=== PATIENT | female | born 1990 | race American Indian/Alaskan Native ===

== ENCOUNTER 2017-04-05 09:40 | Emergency (ER) | payer SELFPAY ==
[2017-04-05 12:02] LABS: Hematocrit 21.8 % (30.3-42.9); Hemoglobin 6.9 gm/dl (10.1-14.3); Mean Corpuscular HGB Conc 31 % (30-34); Mean Corpuscular Volume 73 fl (79-97); Platelet Count 287 K/mm3 (140-440); Red Blood Count 2.98 M/mm3 (3.65-5.03); Red Cell Distribution Width 17.3 % (13.2-15.2); White Blood Count 5.6 K/mm3 (4.5-11.0)
[2017-04-05 12:19] LABS: Mean Corpuscular Hemoglobin 23 pg (28-32)
[2017-04-05] MEDS ORDERED: NACL 0.9% 1000 ML 1,000 ML IV ONE (17:05)
[2017-04-05] MEDS ORDERED: TORADOL IV ONE (17:05)
--- NOTE | 2017-04-05 17:07 | Emergency Department Report ---
ED Female HPI - General Chief complaint: Weakness Stated complaint: SEVERE MIGRAINE Time Seen by Provider: 04/05/17 16:46 Source: patient Mode of arrival: Ambulatory Limitations: No Limitations - History of Present Illness MD Complaint: vaginal bleeding -: Gradual, month(s) (3) Radiation: non-radiating Severity: moderate Severity scale (0 -10): 4 Quality: cramping, sharp, dull Consistency: constant Improves with: none Worsens with: none Are you Now?: No Associated Symptoms: vaginal bleeding, weakness. denies: vaginal discharge, abdominal pain, nausea/vomiting, fever/chills, headaches, loss of appetite, dysuria, hematuria, rash, seizure, shortness of breath, syncope - Related Data Previous Rx's Medication Instructions Recorded Last Taken Type Ibuprofen [Motrin] 800 mg PO TID PRN #15 tablet 08/03/13 Unknown Rx metroNIDAZOLE [Flagyl] 500 mg PO BID #14 tablet 08/03/13 Unknown Rx medroxyPROGESTERone ACETATE 10 mg PO QDAY #10 tablet 04/05/17 Unknown Rx [Provera] Allergies Allergy/AdvReac Type Severity Reaction Status Date / Time No Known Allergies Allergy Unverified 08/03/13 02:23 ED Review of Systems ROS: Stated complaint: SEVERE MIGRAINE Other details as noted in HPI Comment: All other systems reviewed and negative ED Past Medical Hx - Past Medical History Previous Medical History?: Yes Hx Headaches / Migraines: Yes Additional medical history: ANEMIA, IRREG. MENSTRUAL CYCLES. - Surgical History Past Surgical History?: Yes Additional Surgical History: , hernia surgery - Social History Smoking Status: Never Smoker Substance Use Type: None - Medications Home Medications: Home Medications Medication Instructions Recorded Confirmed Last Taken Type Ibuprofen [Motrin] 800 mg PO TID PRN #15 tablet 08/03/13 Unknown Rx metroNIDAZOLE [Flagyl] 500 mg PO BID #14 tablet 08/03/13 Unknown Rx medroxyPROGESTERone ACETATE 10 mg PO QDAY #10 tablet 04/05/17 Unknown Rx [Provera] ED Physical Exam - General Limitations: No Limitations General appearance: alert, in no apparent distress - Head Head exam: Present: atraumatic, normocephalic - Eye Eye exam: Present: normal appearance, PERRL, EOMI - ENT ENT exam: Present: mucous membranes moist - Neck Neck exam: Present: normal inspection - Respiratory Respiratory exam: Present: normal lung sounds bilaterally. Absent: respiratory distress - Cardiovascular Cardiovascular Exam: Present: regular rate, normal rhythm. Absent: systolic murmur, diastolic murmur, rubs, gallop - GI/Abdominal GI/Abdominal exam: Present: soft, normal bowel sounds. Absent: distended, tenderness, guarding, rebound - Extremities Exam Extremities exam: Present: normal inspection - Back Exam Back exam: Present: normal inspection - Neurological Exam Neurological exam: Present: alert, oriented X3 - Psychiatric Psychiatric exam: Present: normal affect, normal mood - Skin Skin exam: Present: warm, dry, intact, normal color. Absent: rash ED Course Vital Signs 04/05/17 04/05/17 04/05/17 11:17 14:40 15:01 Temperature 97.2 F L Pulse Rate 102 H Respiratory 16 Rate Blood Pressure 145/83 Blood Pressure [Right] O2 Sat by Pulse 100 100 96 Oximetry 04/05/17 04/05/17 04/05/17 15:50 16:01 17:00 Temperature 98.5 F Pulse Rate 96 H Respiratory 18 Rate Blood Pressure 106/40 102/53 Blood Pressure 120/56 [Right] O2 Sat by Pulse 99 99 97 Oximetry 04/05/17 04/05/17 18:00 19:00 Temperature Pulse Rate Respiratory Rate Blood Pressure 108/53 109/49 Blood Pressure [Right] O2 Sat by Pulse 99 99 Oximetry ED Medical Decision Making - Lab Data Result diagrams: 04/05/17 11:30 Critical care attestation.: If time is entered above; I have spent that time in minutes in the direct care of this critically ill patient, excluding procedure time. ED Disposition Clinical Impression: Vaginal bleeding Disposition: DC-01 TO HOME OR SELFCARE Is pt being admited?: No Does the pt Need Aspirin: No Condition: Good Instructions: Menstruation (ED) Prescriptions: medroxyPROGESTERone ACETATE [Provera] 10 mg PO QDAY #10 tablet Referrals: PRIMARY CARE, [Primary Care Provider] - 3-5 Days Forms: Accompanied Note, Work/School Release Form(ED) Time of Disposition: 19:26
[2017-04-05 19:21] VITALS: BP 109/49
== END 2017-04-05 19:46 | disposition home or self-care (01) ==
LOC: ED 09:40
DX: N93.9 Abnormal uterine and vaginal bleeding, unspecified (principal); G43.909 Migraine, unspecified, not intractable, without status migrainosus
CPT/HCPCS: 36415; 84702; 85027; 96361; 96374; 99283; J1885; J7030

== ENCOUNTER 2018-12-24 20:34 | Emergency (ER) | payer OTHER ==
--- NOTE | 2018-12-24 21:22 | Emergency Department Report ---
Blank Doc - Documentation Documentation: This is a 28-year-old female that presents with lower back pain. Denies any u rinary symptoms. Worsened with movement. This initial assessment/diagnostic orders/clinical plan/treatment(s) is/are subject to change based on patient's health status, clinical progression and re- assessment by fellow clinical providers in the ED. Further treatment and workup at subsequent clinical providers discretion. Patient/guardians urged not to elope from the ED as their condition may be serious if not clinically assessed and managed. Initial orders include: 1- Patient sent to [facility] for further evaluation and treatment 2- UA
[2018-12-24 21:23] VITALS: BP 132/86
[2018-12-24 22:18] LABS: Bilirubin,Urine NEG (Negative); Blood,Urine MOD (Negative); Color,Urine Yellow (Yellow); Mucus,Urine FEW /HPF; Protein,Urine <15 mg/dL mg/dL (Negative); Urobilinogen,Urine < 2.0 mg/dL (<2.0)
[2018-12-24 22:23] LABS: HCG Qualitative,Urine Negative (Negative)
[2018-12-25] MEDS ORDERED: PERCOCET 5/325 PO ONE (00:15)
[2018-12-25] MEDS ORDERED: ZOFRAN ODT PO ONE (00:15)
[2018-12-25] MEDS ORDERED: TORADOL IM ONE (00:15)
[2018-12-25] MEDS ORDERED: DELTASONE PO ONE (00:16)
--- NOTE | 2018-12-25 01:28 | Cat Scan Report ---
PROCEDURE: CT LUMBAR SPINE WO CON TECHNIQUE: Computerized axial tomography of the lumbar spine was performed from T12 to the sacrum wi thout contrast material. CT DOSE LENGTH PRODUCT: mGycm HISTORY: FALL / PAIN COMPARISONS: None . FINDINGS: There are no fractures L1-2: No significant abnormality . L2-3: No significant abnormality . L3-4: No significant abnormality . L4-5: No significant abnormality . L5-S1: No significant abnormality . Other: Bony pelvis is intact. Soft tissues are unremarkable. . IMPRESSION: No significant abnormality . This document is electronically signed by Jet Paz MD., Dec 25 2018 01:26:26 AM ET
--- NOTE | 2018-12-25 02:51 | Emergency Department Report ---
ED Back Pain/Injury HPI - General Chief Complaint: Back Pain/Injury Stated Complaint: BACK PAIN Time Seen by Provider: 12/24/18 21:21 Source: patient Limitations: No Limitations - History of Present Illness Initial Comments: Patient is a 28-year-old [place] female with no past medical history presents today due to complaint of acute onset persistent severe low back pain after heavy lifting over 10 days ago. Patient states that she has been taking [id number] medications without relief. Patient states that the last 2 days the pain is worse with any activity, lifting or ambulation. Patient states that the pain is better at rest. Patient denies hematuria, fall, traumatic injury, numbness and tingling of lower extremities bilaterally, saddle paresthesia, fever, chills, dysuria, urinary frequency and urgency, vaginal bleeding or abdominal pain and neck pain. MD Complaint: back pain, other (Heavy lifting) -: Sudden, days(s) (10) Similar Symptoms Previously: No Place: work Radiation: none Severity scale (0 -10): 8 Quality: burning, sharp, aching Consistency: constant Improves With: other (sleeping and laying down) Worsens With: movement, walking Context: while lifting, turning/twisting, bending Associated Symptoms: difficulty walking. denies: confusion, weakness, chest pain, numbness, cough, difficulty urinating, diaphoresis, incontinence, fever/chills, constipation, headaches, abdominal pain, loss of appetite, malaise, nausea/vomiting, rash, seizure, shortness of breath, syncope Treatments Prior to Arrival: NSAIDS - Related Data Previous Rx's Medication Instructions Recorded Last Taken Type Ibuprofen [Motrin] 800 mg PO TID PRN #15 tablet 08/03/13 Unknown Rx metroNIDAZOLE [Flagyl] 500 mg PO BID #14 tablet 08/03/13 Unknown Rx medroxyPROGESTERone ACETATE 10 mg PO QDAY #10 tablet 04/05/17 Unknown Rx [Provera] Baclofen 20 mg PO Q8H PRN #24 tablet 12/25/18 Unknown Rx Ibuprofen [Motrin] 800 mg PO Q8HR PRN #20 tablet 12/25/18 Unknown Rx traMADol [Ultram] 50 mg PO Q6HR PRN #15 tablet 12/25/18 Unknown Rx Allergies Allergy/AdvReac Type Severity Reaction Status Date / Time No Known Allergies Allergy Verified 05/13/19 20:39 ED Review of Systems ROS: Stated complaint: BACK PAIN Other details as noted in HPI Comment: All other systems reviewed and negative Constitutional: no symptoms reported, see HPI. denies: chills, diaphoresis, fever, malaise, weakness Eyes: as per HPI. denies: eye pain, eye discharge, vision change ENT: as per HPI. denies: ear pain, throat pain, hearing loss, congestion Respiratory: no symptoms reported, see HPI. denies: shortness of breath, SOB with exertion, SOB at rest, wheezing Cardiovascular: as per HPI. denies: chest pain, palpitations, dyspnea on exertion, orthopnea, edema, syncope, paroxysmal nocturnal dyspnea Endocrine: no symptoms reported, see HPI. denies: excessive sweating, flushing, intolerance to cold, intolerance to heat, increased hunger, increased thirst, increased urine, unexplained weight gain, unexplained weight loss Gastrointestinal: as per HPI. denies: abdominal pain, nausea, vomiting, diarrhea, constipation, hematemesis, hematochezia Genitourinary: as per HPI. denies: urgency, dysuria, frequency, abnormal menses, dyspareunia Musculoskeletal: as per HPI, back pain, arthralgia. denies: joint swelling, myalgia Skin: as per HPI. denies: rash, lesions, change in color Neurological: as per HPI. denies: headache, weakness, numbness, paresthesias, confusion, abnormal gait Psychiatric: as per HPI. denies: anxiety, depression, auditory hallucinations, visual hallucinations, homicidal thoughts Hematological/Lymphatic: as per HPI ED Past Medical Hx - Past Medical History Hx Headaches / Migraines: Yes Additional medical history: ANEMIA, IRREG. MENSTRUAL CYCLES. - Surgical History Additional Surgical History: , hernia surgery - Social History Smoking Status: Never Smoker Substance Use Type: None - Medications Home Medications: Home Medications Medication Instructions Recorded Confirmed Last Taken Type Ibuprofen [Motrin] 800 mg PO TID PRN #15 tablet 08/03/13 Unknown Rx metroNIDAZOLE [Flagyl] 500 mg PO BID #14 tablet 08/03/13 Unknown Rx medroxyPROGESTERone ACETATE 10 mg PO QDAY #10 tablet 04/05/17 Unknown Rx [Provera] Baclofen 20 mg PO Q8H PRN #24 tablet 12/25/18 Unknown Rx Ibuprofen [Motrin] 800 mg PO Q8HR PRN #20 tablet 12/25/18 Unknown Rx traMADol [Ultram] 50 mg PO Q6HR PRN #15 tablet 12/25/18 Unknown Rx ED Physical Exam - General Limitations: No Limitations General appearance: alert, in no apparent distress - Head Head exam: Present: atraumatic, normocephalic, normal inspection - Eye Eye exam: Present: normal appearance, PERRL, EOMI. Absent: scleral icterus, conjunctival injection, nystagmus, periorbital swelling, periorbital tenderness Pupils: Present: normal accommodation - ENT ENT exam: Present: normal exam, normal orophraynx, mucous membranes moist, TM's normal bilaterally, normal external ear exam - Neck Neck exam: Present: normal inspection, full ROM. Absent: tenderness, me ningismus, lymphadenopathy, thyromegaly - Respiratory Respiratory exam: Present: normal lung sounds bilaterally. Absent: respiratory distress, wheezes, rales, chest wall tenderness, accessory muscle use, decreased breath sounds, prolonged expiratory - Cardiovascular Cardiovascular Exam: Present: regular rate, normal rhythm, normal heart sounds - GI/Abdominal GI/Abdominal exam: Present: soft, normal bowel sounds. Absent: distended, tenderness, guarding, rebound, hyperactive bowel sounds, hypoactive bowel sounds, organomegaly - Rectal Rectal exam: Present: deferred - Extremities Exam Extremities exam: Present: normal inspection, full ROM, normal capillary refill - Back Exam Back exam: Present: normal inspection, tenderness (palpable lumbosacral paraspinal tenderness with limited ROM due to pain), muscle spasm, paraspinal tenderness. Absent: full ROM (due to pain), CVA tenderness (R), CVA tenderness (L), vertebral tenderness, rash noted - Neurological Exam Neurological exam: Present: alert, oriented X3, CN II-XII intact, normal gait, reflexes normal - Psychiatric Psychiatric exam: Present: normal affect - Skin Skin exam: Present: warm, dry, intact, normal color ED Course Vital Signs 12/24/18 12/24/18 20:48 21:21 Temperature 98.0 F 98.0 F Pulse Rate 94 H 96 H Respiratory 18 18 Rate Blood Pressure 132/86 132/86 O2 Sat by Pulse 96 96 Oximetry - Reevaluation(s) Reevaluation #1: 12/25/18 02:52 Patient is alert and oriented 3 and is not in distress with normal vital signs. Patient was treated for pain in the ED and L-spine CT scan without contrast was ordered. On reevaluation, patient's pain is well-controlled and aspirin CT scan without contrast shows no acute fractures or subluxations. Patient was discharged home on pain medications and muscle relaxants and advised to follow- up with her primary care physician in 5-7 days for reevaluation. Patient advised to return to the ED immediately if symptoms get worse. ED Medical Decision Making - Radiology Data Radiology results: report reviewed, image reviewed L-spine CT Scan w/o contrast shows no acute fractures or subluxations. - Medical Decision Making Patient is alert and oriented 3 and is not in distress with normal vital signs. Patient was treated for pain in the ED and L-spine CT scan without contrast was ordered. On reevaluation, patient's pain is well-controlled and aspirin CT scan without contrast shows no acute fractures or subluxations. Patient was discharged home on pain medications and muscle relaxants and advised to follow- up with her primary care physician in 5-7 days for reevaluation. Patient advised to return to the ED immediately if symptoms get worse. - Differential Diagnosis Muscle spasm of lower back, Lumbar spine fracture, Degenerative Disc Critical care attestation.: If time is entered above; I have spent that time in minutes in the direct care of this critically ill patient, excluding procedure time. ED Disposition Clinical Impression: Spasm of muscle of lower back, Strain of muscle, fascia and tendon of lower back, initial encounter Disposition: TO HOME OR SELFCARE Is pt being admited?: No Does the pt Need Aspirin: No Condition: Stable Instructions: Muscle Strain (ED), Muscle Spasm (ED), Acute Low Back Pain (ED) Additional Instructions: Take medications with food, drink plenty of fluids and follow up with your primary care physician in 5-7 days for reevaluation. Return to the ED immediately if symptoms get worse. Prescriptions: Baclofen 20 mg PO Q8H PRN #24 tablet PRN Reason: Spasms Ibuprofen [Motrin] 800 mg PO Q8HR PRN #20 tablet PRN Reason: Pain , Severe (7-10) traMADol [Ultram] 50 mg PO Q6HR PRN #15 tablet PRN Reason: Pain Referrals: ANDRADE ROA MD [Primary Care Provider] - 3-5 Days Time of Disposition: 02:57 Print Language: IRISH
== END 2018-12-25 03:18 | disposition home or self-care (01) ==
LOC: ED 20:34
DX: S39.012A Strain of muscle, fascia and tendon of lower back, initial encounter (principal); M62.830 Muscle spasm of back; D64.9 Anemia, unspecified; Z98.890 Other specified postprocedural states; X50.9XXA Other and unspecified overexertion or strenuous movements or postures, initial encounter; Y93.89 Activity, other specified; Y92.89 Other specified places as the place of occurrence of the external cause; Y99.8 Other external cause status
CPT/HCPCS: 72131; 81001; 81025; 96372; 99284; J1885; J7512; Q0162